=== PATIENT | female | born 1980 | race Caucasian/White ===

== ENCOUNTER 2016-06-27 02:33 | Emergency (ER) | payer BC ==
[~2016-06-27] VITALS: Ht 175.3 cm; Wt 51.8 kg
[~2016-06-27 02:33] MED LIST: Motrin PO; Percocet 5/325,Endoc PO; ZOFRAN4 MG PO; ~No Medications
[2016-06-27 03:02] LABS: HEMATOCRIT 36.9 % (36.0-46.0); MCH 28.3 PG (29.0-34.0); MCHC 31.4 G/DL (30.0-36.0); MEAN PLAT.VOLUME 11.3 uM^3 (9.5-12.4); PLATELET COUNT 186 K/uL (156-360); RBC DIS.WIDTH-SD 48.2 % (39-53); WHITE BLOOD COUNT 7.7 K/uL (4.1-10.2)
[2016-06-27 03:13] LABS: CHLORIDE 109 mEq/L (99-109); POTASSIUM 3.8 mEq/L (3.7-5.4); SODIUM 140 mEq/L (136-147)
[2016-06-27 03:15] LABS: GLUCOSE 130 mg/dL (70-99)
[2016-06-27 03:16] LABS: ANION GAP 9 MEQ/L (2-14)
[2016-06-27 03:17] LABS: TOTAL BILIRUBIN 0.4 mg/dL (0.0-1.0)
[2016-06-27 03:18] LABS: ALKALINE PHOSPHATASE 42 IU/L (3-129)
[2016-06-27 03:19] LABS: GFR ESTIMATE (CALCULATED) > 59 mL/min/
[2016-06-27 03:20] LABS: UREA NITROGEN (BUN) 16 mg/dL (9-23)
[2016-06-27 03:23] LABS: ADD MIUA? YES; BILIRUBIN NEGATIVE; BLOOD LARGE; COLOR YELLOW ((YELLOW)); GLUCOSE (STRIP) NEGATIVE; KETONES NEGATIVE; LEUKOCYTES NEGATIVE; NITRITE NEGATIVE; PROTEIN (STRIP) TRACE; SPECIFIC GRAVITY 1.024 (1.000-1.030); UROBILINOGEN 0.2 MG/DL (0.2-1.0)
[2016-06-27 03:28] LABS: QUANTITATIVE HCG < 4.0 MIU/ML
[2016-06-27 03:32] LABS: LIPASE 35 U/L (1.0-51.0)
[2016-06-27 04:26] LABS: BACTERIA 1+; EPITHELIAL CELLS RARE; MUCUS 2+; RED BLOOD CELLS TNTC /HPF (0-5); UCUL ADDED? NO; WHITE BLOOD CELLS 0-5 /HPF (0-5)
[2016-06-27 04:27] LABS: CASTS NONE SEEN /LPF; CRYSTALS NONE SEEN
[2016-06-27] MEDS ORDERED: ZOFRAN8 MG PO (04:27)
[2016-06-27] MEDS ORDERED: FLOMAX0.4 MG PO (04:27)
[2016-06-27] MEDS ORDERED: NORCO 5/3251 TABLET PO (04:27)
[2016-06-27] MEDS ORDERED: CIPRO500 MG PO (04:30)
[2016-06-27 04:41] VITALS: BP 111/64
[2016-06-28] MEDS ORDERED: PERCOCET 5/31 TABLET PO (14:08)
[2016-06-28] MEDS ORDERED: ZOFRAN ODT4 MG PO (14:08)
== END 2016-06-27 04:42 | disposition home or self-care (01) ==
LOC: EME 02:33
DX: N13.2 Hydronephrosis with renal and ureteral calculous obstruction (principal)
CPT/HCPCS: 74176; 80053; 81003; 83690; 84702; 85027; 99281; 99284; J1885; J2405; J7030

== ENCOUNTER 2016-06-28 12:18 | Emergency (ER) | payer BC ==
[~2016-06-28] VITALS: Ht 175.3 cm; Wt 52.8 kg
[~2016-06-28 12:18] MED LIST changes: +CIPRO500 MG PO; +FLOMAX0.4 MG PO; +NORCO 5/3251 TABLET PO; +ZOFRAN8 MG PO
[2016-06-28 13:36] LABS: ADD MIUA? YES; BILIRUBIN NEGATIVE; BLOOD SMALL; COLOR YELLOW ((YELLOW)); GLUCOSE (STRIP) NEGATIVE; KETONES 40; LEUKOCYTES NEGATIVE; NITRITE NEGATIVE; PH, URINE 5.5 (5-8); PROTEIN (STRIP) NEGATIVE; SPECIFIC GRAVITY 1.018 (1.000-1.030); UROBILINOGEN 0.2 MG/DL (0.2-1.0)
[2016-06-28 13:42] LABS: CHLORIDE 103 mEq/L (99-109); POTASSIUM 3.7 mEq/L (3.7-5.4); SODIUM 133 mEq/L (136-147)
[2016-06-28 13:44] LABS: GLUCOSE 112 mg/dL (70-99)
[2016-06-28 13:45] LABS: ANION GAP 8 MEQ/L (2-14)
[2016-06-28 13:48] LABS: GFR ESTIMATE (CALCULATED) > 59 mL/min/
[2016-06-28 13:49] LABS: UREA NITROGEN (BUN) 10 mg/dL (9-23)
[2016-06-28 14:00] LABS: BACTERIA NONE SEEN /HPF; CASTS NONE SEEN /LPF; CRYSTALS NONE SEEN; EPITHELIAL CELLS 1+ /HPF; MUCUS NONE SEEN /LPF; PATHOLOGICAL CAST NONE SEEN; RED BLOOD CELLS 0-5 /HPF (0-5); SMALL ROUND CELL NONE SEEN; UCUL ADDED? NO; WHITE BLOOD CELLS 0-5 /HPF (0-5); YEAST-LIKE CELL NONE SEEN
[2016-06-28] MEDS ORDERED: ZOFRAN ODT4 MG PO (14:08)
[2016-06-28] MEDS ORDERED: PERCOCET 5/31 TABLET PO (14:08)
[2016-06-28 14:22] VITALS: BP 130/73
== END 2016-06-28 14:23 | disposition home or self-care (01) ==
LOC: EME 12:18
PROVIDERS: Emergency Medicine
DX: N20.0 Calculus of kidney (principal)
CPT/HCPCS: 80048; 81003; 99281; 99284; J1885; J2405